=== PATIENT | female | born 1975 ===

== ENCOUNTER → 2020-08-28 13:56 | Outpatient (BNVA) | payer OTHER, SELFPAY | PROVIDERS: Visit Provider Physician Assistant ==

== ENCOUNTER 2020-09-07 07:51 | Outpatient (REF) | payer OTHER, SELFPAY ==
[2020-09-07 08:41] LABS: MANUAL DIFF FLAG NO
[2020-09-07 08:48] LABS: Basophils Percent Auto 0.4 % (0-2); Eosinophils Absolute Auto 0.1 X10*3/uL (0.0-0.4); Eosinophils Percent Auto 2.2 % (0-4); Hematocrit 32.5 % (37-47); Imm Gran Abs Auto 0.01 X10*3/uL (0.00-0.03); Imm Gran Pct Auto 0.2 % (0.0-0.4); Lymphocytes Absolute Auto 1.5 X10*3/uL (1.2-4.9); Lymphocytes Percent Auto 32.7 % (20-40); Mean Corpuscular HGB Conc 30.8 g/dl (31.0-35.0); Mean Corpuscular Hemoglobin 23.5 pg (27.0-33.0); Mean Corpuscular Volume 76.5 fL (80-98); Mean Platelet Volume 10.5 fL (9.4-12.3); Monocytes Absolute Auto 0.3 X10*3/uL (0.1-1.2); Monocytes Percent Auto 6.2 % (2-11); Neutrophils Absolute Auto 2.6 X10*3/uL (2.0-8.3); Neutrophils Percent Auto 58.3 % (45-73); Platelet Count 336 X10*3/uL (160-400); Red Blood Count 4.25 X10*6/uL (4.20-5.50); Red Cell Distribution Width 17.3 % (11.0-16.0); White Blood Count 4.5 X10*3/uL (4.8-10.8)
[2020-09-07 09:13] LABS: Estimated Average Glucose 111 mg/dL; Hemoglobin A1c % 5.5 %
[2020-09-07 09:22] LABS: Alanine Aminotransferase 15 U/L (0-31); Alkaline Phosphatase 54 U/L (39-117); Anion Gap 10 (12-20); Aspartate Amino Transferase 19 U/L (5-31); Bilirubin Total 0.3 mg/dL (0.0-1.0); Blood Urea Nitrogen 19 mg/dL (9-16); C Reactive Protein 0.12 mg/dL (< or = 0.50); Calcium 7.9 mg/dL (8.4-10.2); Carbon Dioxide 29 mmol/L (22-29); Chloride 106 mmol/L (96-108); Cholesterol 196 mg/dL; Estimated Glomerular Filt Rate > 60; Glucose Random 88 mg/dL (60-115); HDL Cholesterol 59 mg/dL; Iron 27 mcg/dL (30-160); LDL Cholesterol Calculated 129 mg/dl; Percent Iron Saturation 7 % (15-50); Sodium 141 mmol/L (135-145); Total Iron Binding Capacity 369 mcg/dL (228-428); Total Protein 6.7 g/dL (6.5-8.0); Triglycerides 43 mg/dL; Unsaturated Iron Binding 342 ug/dL
[2020-09-07 09:44] LABS: Ferritin 5 ng/mL (10-250); TSH reflex Free T4 1.75 uIU/mL (0.32-4.0); Vitamin D 25-OH Total 40.6 ng/mL (>30)
[2020-09-09 09:45] LABS: Folate 18.9 ng/mL (> or = 4.0); Vitamin B12 366 pg/mL (200-900)
[2020-09-10 03:42] LABS: Zinc 86 mcg/dL (60-130)
[2020-09-10 10:27] LABS: Calcium (PTHI) 8.1 mg/dL (8.6-10.2); PTHI 41 pg/mL (14-64)
[2020-09-11 15:11] LABS: Vitamin A 47 mcg/dL (38-98)
[2020-09-11 15:56] LABS: Vitamin B1 45 nmol/L (8-30)
== END 2020-09-07 07:52 | disposition home or self-care (01) ==
LOC: HO.LAB 07:51
PROVIDERS: PCP Family Medicine; Visit Provider Physician Assistant
DX: E66.9 Obesity, unspecified (principal); Z90.3 Acquired absence of stomach [part of]
CPT/HCPCS: 36415; 80053; 80061; 82306; 82607; 82728; 82746; 83036; 83525; 83540; 83970; 84425; 84443; 84590; 84630; 85025; 86140

== ENCOUNTER → 2020-10-16 08:12 | Outpatient (BNVA) | payer OTHER, SELFPAY | PROVIDERS: Visit Provider Physician Assistant | DX: Z90.3 Acquired absence of stomach [part of] (principal); E66.9 Obesity, unspecified ==

== ENCOUNTER 2022-04-13 08:19 | Emergency (ER) | payer OTHER, SELFPAY ==
[2022-04-13 08:31] VITALS: BP 158/76; PULSE 61; RESP 20; TEMP 36.6; O2SAT 100; BMI 31.3
--- NOTE | 2022-04-13 09:12 | ED.SKABFB ---
HPI - Skin/Abscess/Foreign Bdy General Chief complaint: Skin/Abscess/Foreign Body Stated complaint: Rash Time Seen by Provider: 04/13/22 09:04 Source: patient Mode of arrival: ambulatory History of Present Illness HPI narrative: 47-year-old female with no significant past medical history presenting to the ED complaining of pruritic rash to back and abdomen x1 month. Admits feels like rash is spreading. Was evaluated by PCP initially prescribed topical triamcinolone, and then permethrin without any relief. Denies fever, chills, new exposures/medications, recent travel, known insect/tick bites, SOB MD complaint: rash Onset (ago): month(s) Related Data Home Medications Medication Instructions Recorded Confirmed acetaminophen 325 mg tablet 0 mg PO 08/28/20 08/28/20 bupropion HCl 100 mg tablet,12 hr 100 mg PO BID 08/28/20 08/28/20 sustained-release calcium carbonate 300 mg (750 mg) 2 tab PO QID PRN 08/28/20 08/28/20 chewable tablet famotidine 40 mg tablet (Pepcid) 40 mg PO DAILY 08/28/20 08/28/20 hydroxyzine HCl 25 mg tablet 25 mg PO TID 08/28/20 08/28/20 vilazodone 40 mg tablet mg PO 08/28/20 08/28/20 Previous Rx's Medication Instructions Recorded iron,carbonyl 65 mg-vitamin C 125 1 tab PO DAILY #30 tabs 09/18/20 mg tablet,delayed release (Vitron-C) diphenhydramine HCl 25 mg capsule 25 mg PO TID PRN allergy symptoms 04/13/22 (Benadryl) #14 caps hydrocortisone 1 % topical 1 appl topical BID PRN rash #28.35 04/13/22 ointment (Anti-Itch grams (hydrocortisone)) prednisone 20 mg tablet 40 mg PO DAILY 5 days #10 tabs 04/13/22 Allergies Allergy/AdvReac Type Severity Reaction Status Date / Time No Known Allergies Allergy Unverified 08/28/20 14:06 [No Known Allergies*] Review of Systems Review of Systems: Constitutional: No Weight loss, No Fever, No Chills ENT/Mouth: No Ear Pain, No Nasal Congestion, No Sinus Pain, No Hoarseness, No sore throat, No Rhinorrhea, No Swallowing Difficulty Cardiovascular: No Chest Pain, No SOB Respiratory: No Cough, No Sputum, No Wheezing Gastrointestinal: No Nausea, No Vomiting, No Diarrhea, No Constipation, No Abdominal pain Genitourinary: No Dysuria, No Urinary Frequency, No Hematuria, No Flank Pain Musculoskeletal: No joint pain, No Myalgias, No Joint Swelling Skin: No Skin Lesions, + rash Neuro: No Weakness, No Numbness, No Paresthesias Yes all other systems are reviewed and are negative Constitutional: Constitutional: Reports as per [facility] Past Medical History Attestation statement: The following information was validated with the patient. Surgical History History of sleeve gastrectomy Hx of cholecystectomy Family History Family History Father Stroke Mother Diabetes mellitus Sister Cancer of kidney Brother No problems noted. Sister No problems noted. Social History Social History Alcohol intake: never Advance Directives: No Advance Directives Information Provided: No Physical Exam Vital Signs: Vital Signs: Last Vital Signs Temp 97.8 F 04/13/22 08:31 Pulse 61 04/13/22 08:31 Resp 20 04/13/22 08:31 BP 158/76 H 04/13/22 08:31 Pulse Ox 100 04/13/22 08:31 O2 Del Method 04/13/22 08:31 BMI result Body Mass Index 31.3 Const: General: cooperative, healthy appearing and no acute distress Orientation/consciousness: patient oriented x3 Limitations: no limitations HEENT: Other: No mucous membrane involvement Head: Yes normal to inspection and Yes atraumatic Ears: hearing grossly normal bilaterally General nose exam: Normal external nose present Face and sinus: Yes normal facial exam Mouth: Normal oral and palatal mucosa present Throat: Yes posterior oropharynx normal, Yes uvula midline, No peritonsillar mass, No uvula laterally displaced and No uvular edema Eyes: General: appearance normal, both eyes and all related structures EOM: EOMs intact bilaterally Neck: Neck: Yes normal visual inspection and Yes no meningeal signs Resp: Effort & Inspection: normal respiratory effort and no respiratory distress Cardio: Rate: regular rate Heart sounds: S1 normal heart sound present and S2 normal heart sound present GI: Inspection: Yes normal to inspection Palpation (GI): Soft to palpation, nontender, no guarding and not rigid Skin: Other: + papular rash noted to back and abdomen with scant area to right axilla. No erythema/warmth, no pustules, no excoriations. No palm or sole involvement Wounds: no wounds Neuro: General: patient oriented x3, tone normal and no meningeal signs Gait exam (Neuro): Normal gait present Extrem: General: Yes normal to inspection Medical Decision Making Medical Decision Making MDM Narrative: 47-year-old female with no significant past medical history presenting to the ED complaining of pruritic rash to back and abdomen x1 month. On exam vital signs stable, NAD, nontoxic appearing, physical exam as noted above. Papular rash without mucous membrane or palm/sole involvement. Concern for contact dermatitis. Low suspicion for TENS/SJS, or STI Differential Diagnosis Differential Diagnoses: The differential diagnosis associated with the presentation includes as above External Record Review External record reviewed: Office record Prescription Management I considered prescription management with: Antibiotic (however not needed at this time) Discharge Plan Discharge Clinical Impression: Rash Patient Disposition: Home, Self-Care Instructions: Acute Rash (ED) Additional Instructions: Continue taking Zyrtec daily. In addition take Benadryl for itching/rash, Benadryl will make you drowsy. Prednisone as a steroid, take as prescribed. Topical hydrocortisone is a topical steroid, apply to rash only, avoid appliance to face, hands, genital region as can discolored skin Please follow-up with a chief human resources officer. If symptoms persist or worsen, you have fever, nausea/vomiting, spreading rash return to the ED Prescriptions: New diphenhydramine HCl [Benadryl] 25 mg capsule 25 mg PO TID PRN (Reason: allergy symptoms) Qty: 14 0RF hydrocortisone [Anti-Itch (HC)] 1 % ointment 1 appl topical BID PRN (Reason: rash) Qty: 28.35 0RF prednisone 20 mg tablet 40 mg PO DAILY 5 Days Qty: 10 0RF No Action Vitron-C 65 mg iron- 125 mg tablet,delayed release (DR/EC) 1 tab PO DAILY Qty: 30 11RF Viibryd 40 mg tablet PO calcium carbonate 300 mg (750 mg) tablet,chewable 2 tab PO QID PRN acetaminophen 325 mg tablet 0 mg PO bupropion HCl 100 mg tablet sustained-release 12 hr 100 mg PO BID hydroxyzine HCl 25 mg tablet 25 mg PO TID famotidine [Pepcid] 40 mg tablet 40 mg PO DAILY Referrals: Eve Navarro PA [Physician Line Cleaner] - Jarett Elder MD [Physician] - Schuyler Fernandes MD [Physician] - Stevenson Aguilar FNP-ASHISH [Nurse Practitioner] - Cassie Cheng PA-C [Physician Line Cleaner] -
== END 2022-04-13 09:33 | disposition home or self-care (01) ==
PROVIDERS: Emergency Provider Emergency Medicine
DX: R21 Rash and other nonspecific skin eruption (principal)
CPT/HCPCS: 99283

== ENCOUNTER → 2023-02-18 13:24 | Outpatient (BNVA) | payer OTHER, SELFPAY | PROVIDERS: Visit Provider Physician Assistant Surgical ==

== ENCOUNTER 2023-02-27 08:27 | Outpatient (REF) | payer OTHER, SELFPAY ==
[2023-02-27 08:50] LABS: MANUAL DIFF FLAG NO
[2023-02-27 09:25] LABS: Basophils Percent Auto 0.6 % (0-2); Eosinophils Absolute Auto 0.1 X10*3/uL (0.0-0.4); Hematocrit 36.5 % (37.0-47.0); Hemoglobin 11.3 g/dl (12.0-16.0); Imm Gran Abs Auto 0.02 X10*3/uL (0.00-0.03); Imm Gran Pct Auto 0.4 % (0.0-0.4); Lymphocytes Absolute Auto 1.5 X10*3/uL (1.2-4.9); Lymphocytes Percent Auto 30.2 % (20-40); Mean Corpuscular Hemoglobin 23.7 pg (27.0-33.0); Mean Corpuscular Volume 76.7 fL (80.0-98.0); Monocytes Absolute Auto 0.4 X10*3/uL (0.1-1.2); Monocytes Percent Auto 7.7 % (2-11); Neutrophils Percent Auto 60.1 % (45-73); Platelet Count 341 X10*3/uL (160-400); Red Blood Count 4.76 X10*6/uL (4.20-5.50); Red Cell Distribution Width 18.9 % (11.0-16.0); White Blood Count 5.1 X10*3/uL (4.8-10.8)
[2023-02-27 09:30] LABS: Estimated Average Glucose 120 mg/dL; Hemoglobin A1C 118.6537 umol/L; Hemoglobin A1c % 5.8 % (<6.0)
[2023-02-27 09:51] LABS: Alanine Aminotransferase 11 U/L (0-31); Alkaline Phosphatase 60 U/L (39-117); Anion Gap 12 (12-20); Aspartate Amino Transferase 19 U/L (5-31); Bilirubin Total 0.2 mg/dL (0.0-1.0); Blood Urea Nitrogen 13 mg/dL (9-16); C Reactive Protein 0.33 mg/dL (< or = 0.50); Carbon Dioxide 31 mmol/L (22-29); Chloride 101 mmol/L (96-108); Cholesterol 235 mg/dL (<200); Estimated Glomerular Filt Rate > 60; Glucose Random 87 mg/dL (60-115); HDL Cholesterol 56 mg/dL (>40); Iron 26 mcg/dL (30-160); LDL Cholesterol Calculated 162 mg/dL (<100); Percent Iron Saturation 8 % (15-50); Sodium 141 mmol/L (135-145); Total Iron Binding Capacity 336 mcg/dL (228-428); Total Protein 7.5 g/dL (6.5-8.0); Triglycerides 85 mg/dL (<150); Unsaturated Iron Binding 310 ug/dL
[2023-02-27 10:09] LABS: Ferritin 4 ng/mL (10-250); Insulin 6 uU/mL (2-29); TSH reflex Free T4 1.74 uIU/mL (0.32-4.0); Vitamin D 25-OH Total 43.4 ng/mL (>30)
[2023-02-27 10:21] LABS: Folate 14.4 ng/mL (> or = 4.0); Vitamin B12 649 pg/mL (200-900)
[2023-03-02 16:29] LABS: Calcium (PTHI) 7.8 mg/dL (8.6-10.2); PTHI 38 pg/mL (16-77)
[2023-03-03 00:59] LABS: Zinc 79 mcg/dL (60-130)
[2023-03-03 11:18] LABS: Vitamin A 43 mcg/dL (38-98)
[2023-03-06 08:44] LABS: Vitamin B1 25 nmol/L (8-30)
== END 2023-02-27 08:28 | disposition home or self-care (01) ==
LOC: HO.LAB 08:27
PROVIDERS: Visit Provider Physician Assistant Surgical
DX: K91.2 Postsurgical malabsorption, not elsewhere classified (principal); Z90.3 Acquired absence of stomach [part of]
CPT/HCPCS: 36415; 80053; 80061; 82306; 82607; 82728; 82746; 83036; 83525; 83540; 83970; 84425; 84443; 84590; 84630; 85025; 86140

== ENCOUNTER 2023-04-08 13:41 | Outpatient (AMB) | payer OTHER, SELFPAY ==
--- NOTE | 2023-04-08 13:31 | MHC.OFFVISWM ---
Intake VS Expanded 04/08/23 13:38 Height 5 ft 3 in Weight 200 lb BMI 35.4 Intake Visit Reasons: (VIDEO) PO LSG 10/06/2018 Allergies No Known Allergies [No Known Allergies*] Allergy (Unverified 08/28/20 14:06) Medication List - Last Reconciled 04/08/23 by ANGELA Mcclain acetaminophen 0 mg PO bupropion HCl 100 mg PO BID calcium carbonate 2 tabs PO QID PRN diphenhydramine HCl (Benadryl) 25 mg PO TID PRN famotidine (Pepcid) 40 mg PO DAILY hydrocortisone 1% (Anti-Itch (hydrocortisone)) 1 appl topical BID PRN hydroxyzine HCl 25 mg PO TID iron,carbonyl-vitamin C 65 mg iron- 125 mg (Vitron-C) 1 tab PO BEDTIME vilazodone mg PO HPI HPI Comments History of Present Illness Details This?is a?48?yo female who is s/p LSG 10/06/2018. Presents for 4.5 year post op visit. Weight at last visit on 08/28/2020 was 181 pounds with a BMI of 32.1, weight today is 200 pounds (pt thinks), representing a 19 pound weight gain with a BMI today of 35.4.? Pt was unaware of recent bloodwork results despite our office leaving a message. Not doing anything for exercise. No gym membership. Willing to do home workouts. Recently started a BP med, unsure of the name. REPLACED BY [facility] Surgical History History of sleeve gastrectomy Hx of cholecystectomy Family History Father Stroke Mother Diabetes mellitus Sister Cancer of kidney Brother No problems noted. Sister No problems noted. Social History Alcohol intake: never Assessment & Plan Assessment & Plan (1) Obesity: Code(s): E66.9 - Obesity, unspecified (2) History of sleeve gastrectomy: Comment: 2018 Code(s): Z90.3 - Acquired absence of stomach [part of] (3) Anemia: Code(s): D64.9 - Anemia, unspecified Plan Pt needs to call her PCP and let them know about her recent K/Ca results, as it's possible her new BP med is affecting these (she is unsure of name of med today). Also advised her to let them know her chol levels are now above normal. New meal plan, goal 80g protein/day: 2 shakes, each with 2 scoops Orgain in 8 oz unsweetened almond milk 1 ZP bar 1 meal with 6 forks protein, 6 forks salad/veg Sent pt home exercise video handout. RTC 6 weeks for accountability. Texted meal plan to pt and encouraged her to reach out between appts with any questions. Patient is obese and is not considered stable at this time. I spent a total of 30 minutes reviewing/updating records, examining the patient and counseling the patient on weight management as detailed above. Telehealth Telehealth Location of provider rendering services: practice address Location of patient: other Patient Identification confirmed using: Name, : Yes Telehealth method: video Patient verbally consented to treatment: Yes Patient verbally consented to billing insurance company: Yes Patient informed of any privacy concerns related to visit: Yes Coding Level of Care Code Tele Est Pt Level 4 (95588) Diagnoses Obesity E66.9 History of sleeve gastrectomy Z90.3 Anemia D64.9
[2023-04-08 13:38] VITALS: BMI 35.4
== END 2023-04-08 13:51 | disposition home or self-care (01) ==
LOC: HO.HBS 13:41
PROVIDERS: Visit Provider Physician Assistant Surgical
DX: E66.9 Obesity, unspecified (principal); Z90.3 Acquired absence of stomach [part of]; D64.9 Anemia, unspecified
CPT/HCPCS: 99214

== ENCOUNTER → 2023-04-08 13:41 | Outpatient (BNVA) | payer OTHER, SELFPAY | PROVIDERS: Visit Provider Physician Assistant Surgical ==

== ENCOUNTER → 2024-04-25 08:30 | Outpatient (BNV) | payer OTHER, SELFPAY | PROVIDERS: Emergency Provider Emergency Medicine; Visit Provider Radiology Diagnostic Radiology | DX: M25.641 Stiffness of right hand, not elsewhere classified (principal) | CPT/HCPCS: 73130 ==

== ENCOUNTER 2024-10-17 15:21 | Outpatient (AMB) | payer OTHER, SELFPAY ==
--- NOTE | 2024-10-17 15:24 | MHC.OFFVISWM ---
VS Expanded 10/17/24 15:26 10/17/24 15:28 BP 139/68 Blood Pressure Location Lt brachial Lt brachial Blood Pressure Position Sitting Sitting Pulse 67 Temp 97.0 F Pulse Oximetry 97 Height 5 ft 3 in 5 ft 3 in Weight 211 lb BMI 37.4 Body Fat % 42.4 Body Fat Mass 89.6 Fat Free Mass 121.4 Visceral Fat Rating 12.0 Body Water % 41.1 Body Water Mass 86.6 Muscle Mass/Score 115.4 Basal Metabolic Rate/Score 1,686 Intake Visit Reasons: (OV) PO LSG 10/06/2018 Allergies No Known Allergies (No Known Allergies*) Allergy (Verified 10/17/24 15:29) Medication List - Last Reconciled 10/17/24 by ANGELA Mcclain acetaminophen 0 mg PO bupropion HCl SR 200 mg PO QAM calcium carbonate 2 tabs PO QID PRN diphenhydramine HCl (Benadryl) 25 mg PO TID PRN famotidine (Pepcid) 40 mg PO DAILY hydrochlorothiazide 25 mg PO DAILY hydrocortisone 1% (Anti-Itch (hydrocortisone)) 1 appl topical BID PRN hydroxyzine HCl 50 mg PO TID iron,carbonyl-vitamin C 65 mg iron- 125 mg (Vitron-C) 1 tab PO BEDTIME vilazodone mg PO HPI Comments Details: This?is a 49?yo F who is s/p LSG 10/06/2018. Presents for 6yr post op visit. Weight gain of 11lbs since last OV Mar 2023. No complaints of nausea, emesis, abdominal pain or reflux, or constipation. Present meal plan includes: 7-9am Premier Protein shake 2 scoops in 8oz UAM 12pm lunch- 6 forks protein, 6 forks salad/veg (discussed substituting half of salad/veg forks for healthy carb like rice or potatoes) 2-4pm Celebrate protein bar 6-8pm bar -given at last visit [facility] Surgical History History of sleeve gastrectomy Hx of cholecystectomy Family History Father Stroke Mother Diabetes mellitus Sister Cancer of kidney Brother No problems noted. Sister No problems noted. Social History Alcohol intake: never Physical Exam Vital Signs: Last Vital Signs Temp 97.0 F 10/17/24 15:28 Pulse 67 10/17/24 15:28 BP 139/68 10/17/24 15:28 Pulse Ox 97 10/17/24 15:28 BMI result Body Mass Index 37.4 Assessment & Plan Assessment & Plan (1) History of sleeve gastrectomy: Comment: 2019 Code(s): Z90.3 - Acquired absence of stomach [part of] Category: Surgical (2) Obesity: Code(s): E66.9 - Obesity, unspecified Category: Medical Plan Pt is interested in starting GLP1. Reviewed contraindications, discussed dosing. Discussed need for adequate protein intake while on GLP1s as well as frequent communication with our office. Pt will check in with me weekly and is aware that subsequent Rx will be dependent on frequent communication. Will recheck labs, was low in Ca/K last draw 1.5 years ago. RTC 3 mo. Orders: Orders Ferritin Today Z90.3 - Acquired absence of stomach [part of] C Reactive Protein Today Z90.3 - Acquired absence of stomach [part of] Vitamin A Today Z90.3 - Acquired absence of stomach [part of] Comprehensive Met. Panel Today Z90.3 - Acquired absence of stomach [part of] Complete Blood Count Auto Diff Today Z90.3 - Acquired absence of stomach [part of] Lipid Panel Today Z90.3 - Acquired absence of stomach [part of] IRON PROFILE Today Z90.3 - Acquired absence of stomach [part of] Insulin Today Z90.3 - Acquired absence of stomach [part of] Vitamin D 25-OH Total Today Z90.3 - Acquired absence of stomach [part of] TSH reflex Free T4 Today Z90.3 - Acquired absence of stomach [part of] Vitamin B1 Today Z90.3 - Acquired absence of stomach [part of] Zinc Today Z90.3 - Acquired absence of stomach [part of] Vitamin B12 and Folate Today Z90.3 - Acquired absence of stomach [part of] Hemoglobin A1c Today Z90.3 - Acquired absence of stomach [part of] Medications: New Zepbound (tirzepatide (weight loss)) for 4 weeks 2.5 mg (0.5 mL) subcut QWEEK 2 mL 0RF NS
[2024-10-17 15:28] VITALS: BP 139/68; PULSE 67; TEMP 36.1; O2SAT 97; BMI 37.4
--- OUTSIDE RECORDS SUMMARY | 2024-10-17 16:09 | XMS_ITS | Clinical Summary ---
Author Organization [facility] Address [address] [place] [address] Care Team Providers Care Auto Tester Name Role Phone Luca Miller MD Primary Care Provider [phone] Allergies No known active allergies Medications acetaminophen (TYLENOL) 325 mg tablet Take 2 Tabs by mouth every 6 hours as needed for Pain for up to 30 doses. 03/21/2018 Active cetirizine (ZyrTEC) 10 mg tablet 1/2 TABLET DAILY 04/01/2006 Active esomeprazole (NexIUM) [address] capsule 1 CAPSULE DAILY 10/13/2006 Active fexofenadine (Dena Allergy) 180 mg tablet 1 TABLET DAILY 10/13/2006 Active metFORMIN (GLUCOPHAGE) 500 mg tablet 1 tab daily 10/13/2006 Act yamileth norethindrone ac-eth estradio (LOESTRIN) 1.5-30 mg-mcg per tablet None Entered Active ferrous sulfate 325 mg (65 mg elemental iron) tablet 1 TABLET DAILY Active Active Problems Problem Noted Date Diagnosed Date Headache 06/29/2006 Esophageal reflux 02/04/2006 Controlled diabetes mellitus type II without complication ([facility] V24, [facility] V28) 08/04/2005 Morbid obesity ([facility] V24, [facility] V28) 2005 Surgical History Surgery Date Site/Laterality Comments CHOLECYSTECTOMY 03/07/2018 PROCEDURE: [place] CHOLECYSTECTOMY Medical History Medical History Date Comments Type II or unspecified type diabetes mellitus without mention of complication, not stated as uncontrolled DX:Type II or unspecified ty pe diabetes mellitus without mention of complication, not stated as uncontrolled Morbid obesity ([facility] V24, [facility] V28) DX:Morbid obesity ([facility]) Esophageal reflux 02/04/2006 DX:Esophageal reflux Family History Medical History Relation Name Comments Other: dm Aunt 1 Other: heart condition Mother Pt did not know details Allergies Sister 1 Relation Name Status Comments Aunt 1 Aunt 2 Mother Sister 1 Sister 2 Social History Tobacco Use Types Packs/Day Years Used Date Smoking Tobacco: Never Smokeless Tobacco: Never Alcohol Use Standard Drinks/Week Comments Not Asked 0 (1 standard drink = 0.6 oz pur e alcohol) Comments Unknown Sex and Gender Information Value Date Recorded Sex Assigned at Not on file Legal Sex Female 4:55 AM EST Gender Identity Not on file Sexual Orientation Not on file Obstetrics History Plan of Treatment Upcoming Encounters Date Type Department Care Team (Late st Contact Info) Description 10/18/2024 8:45 AM EDT Appointment [facility] [address] [address] Health Maintenance Due Date Last Done Comments Diabetes: Annual Foot Exam 1983 Diabetes: Annual Retina Eye Exam 1983 DTaP,Tdap,and Td Vaccines (1 - Tdap) 1992 Hepatitis B Vaccines (1 of 3 - 19+ 3-dose series) 1992 Pneumococcal Vaccine: 50+ Years (1 of 2 - PCV) 1992 Pneumococcal Vaccine: Pediatrics (0 to 5 Years) and At-Risk Patients (6 to 64 Years) (1 of 2 - PCV) 1992 Cervical Cancer Screening: P ap Smear 1994 Diabetes: Annual GFR (Glomerular Filtration Rate) 01/09/2007 01/09/2006 Cholesterol Screening (Lipid Panel) 03/22/2022 08/04/2005 Colorectal Cancer Screening: Colonoscopy 03/22/2022 Depression Screening 03/22/2022 HIV Screening 03/22/2022 Hepatitis C Screening 03/22/2022 Social Influencers of Health Screening 03/22/2022 Diabetes: Annual Urine Albumin-Creatinine Ratio (uACR) 04/03/2022 01/09/2006 Diabetes: Blood Sugar Contro l Test (HGBA1C) 04/03/2022 01/09/2006 Zoster Vaccines (1 of 2) 2023 COVID-19 Vaccine ( - 2023-2 5 season) 2023 Breast Cancer Screening 10/14/2024 10/15/19, 10/23/2020, 11/04/2017 Influenza Vaccine (Season Ended) 2024 HIB Vaccines Aged Out No longer eligi ble based on patient's age to complete this topic HPV Vaccines Aged Out No longer eligi ble based on patient's age to complete this topic Hepatitis A Vaccines Aged Out No long er eligible based on patient's age to complete this topic IPV Vaccines Aged Out No longer eligi ble based on patient's age to complete this topic MMR Vaccines Aged Out No longer eligi ble based on patient's age to complete this topic Meningococcal ACWY Vaccine Aged Out N o longer eligible based on patient's age to complete this topic Meningococcal B Vaccine Aged Out No l onger eligible based on patient's age to complete this topic RSV Immunization Patients Under 20 months Aged Out No longer eligible b ased on patient's age to complete this topic Varicella Vaccines Aged Out No longer eligible based on patient's age to complete this topic Procedures Procedure Name Priority Date/Time Associated Diagnosis Comments [facility] SCREENING DIGITAL Routine 10/14/2022 3:48 PM EDT Encounter for screening mammogram for malignant neoplasm of breast URINE ALBUMIN CREATININE RATIO Routine 01/09/2006 ANNUAL BMP BLOOD TEST Routine 01/09/2006 HEMOGLOBIN A1C Routine 01/09/2006 LIPID PANEL Routine 08/04/2005 from Last 3 Months or Most Recently Relevant to Health Maintenance Results * [facility] SCREENING DIGITAL (10/14/2022 3:48 PM EDT) Anatomical Region Laterality Modality Mammography 10/14/2022 9:35 AM EDT Narrative 10/14/2022 3:48 PM EDT [facility] Diagnostic Imaging Department [address] [place] [address] [id number] Patient: TEAGAN RAO D.O.B./Age/Sex: 1975 - 47 - F Unit#: [id number] Location/Status: SPDIMAM/REG CLI Mnemonic/Ordering Site: [facility] Ordering Physician: REY ARNOLD FRUIT OR NUT GROWER Nayla Screening Digital - 10/14/22 - 50 Report Status:Signed EXAM: [facility] Screening Digital EXAM DATE AND TIME: 10/14/2022 9:51 AM HISTORY: Screening. COMPARISON: 10/23/20, 11/04/17, 08/17/16 TECHNIQUE: CC and MLO views of both breasts were obtained using full field digital mammography. Bilateral digital breast tomosynthesis was performed in the MLO projection. Computer aided detection with Blurr 7.2-H and Conecta 2 3D 3.1 was employed. TISSUE DENSITY: b. There are scattered areas of fibroglandular density. FINDINGS: A 2.5 cm asymmetry is seen in the upper left breast, middle depth, MLO views only, possibly summation artifact. MLO spot compression tomosynthesis views and full lateral tomosynthesis views are recommended for further assessment. No grouped microcalcifications or areas of architectural distortion are seen. The skin and vascularity are unremarkable. IMPRESSION: 1. Left breast asymmetry, for which additional views are recommended. The patient will be called back. 2. Stable mammographic appearance of the right breast. No evidence of malignancy is seen. BI-RADS: Category 0: Incomplete - Need Additional Imaging Evaluation RECOMMENDATION(S): 1: Special mammographic view(s) needed LEFT [id number], [id number], [id number] Dictating Physician: RYLIE BOLANOS MD Electronically Signed by: RYLIE BOLANOS MD Dic Date/Time: 10/14/22 1546 Sign date/Time: 10/14/22 154 Procedure Note Rylie Bolanos MD - 05/25/2023 [facility] Diagnostic Imaging Department [address] [place] [id number] Patient: TEAGAN RAO /Age/Sex: 1975 - 47 - F Unit#: [id number] Location/Status: SPDIMAM/REG CLI Mnemonic/Ordering Site: [facility] Ordering Physician: REY ARNOLD NP [facility] Screening Digital - 10/14/22 - 0950 Report Status:Signed EXAM: [facility] Screening Digital EXAM DATE AND TIME: 10/14/2022 9:51 AM HISTORY: Screening. COMPARISON: 10/23/20, 11/04/17, 08/17/16 TECHNIQUE: CC and MLO views of both breasts were obtained using fullfield digital mammography. Bilateral digital breast tomosynthesis was performedin the MLO projection. Computer aided detection with Blurr 7.2-H andConecta 2 3D 3.1 was employed. TISSUE DENSITY: b. There are scattered areas of fibroglandular density. FINDINGS: A 2.5 cm asymmetry is seen in the upper left breast, middle depth, MLOviews only, possibly summation artifact. MLO spot compression tomosynthesisviews and full lateral tomosynthesis views are recommended for further assessment. No grouped microcalcifications or areas of architectural distortion areseen. The skin and vascularity are unremarkable. IMPRESSION: 1. Left breast asymmetry, for which additional views are recommended.The patient will be called back. 2. Stable mammographic appearance of the right breast. No evidence of malignancy is seen. BI-RADS: Category 0: Incomplete - Need Additional Imaging Evaluation RECOMMENDATION(S): 1: Special mammographic view(s) needed LEFT [id number], [id number], [id number] Dictating Physician: RYLIE BOLANOS MD Electronically Signed by: RYLIE BOLANOS MD Dic Date/Time: 10/14/221545 Sign date/Time: 10/14/221547 Result [facility] Rey Arnold FRUIT OR NUT GROWER IMG BI PROCEDURES Magdalena l Result * Urine Albumin Creatinine Ratio (01/09/2006) Pathologist [facility] Urine Albumin Creatinine Ratio Abstracted Result [facility] Provider HEALTH MAINTENANCE Final Result * Annual BMP Blood Test (01/09/2006) Pathologist [facility] Annual BMP Blood Test Abstracted Result [facility] Provider HEALTH MAINTENANCE Final Result * Hemoglobin A1c (01/09/2006) [facility] Hemoglobin A1C 5.9 4.0 - 6.0 % Blood Venous blood specimen / Unknown Result [facility] Provider LAB BLOOD ORDERABLES Magdalena l Result * (ABNORMAL) Lipid panel (08/04/2005) [facility] LDL/HDL Ratio 5(A) 0 - 4 Triglycerides 137 0 - 150 mg/dL Cholesterol 203(A) 0 - 200 mg/dL HDL 44 >=40 mg/dL LDL Cholesterol 132(A) 0 - 100 mg/dL Blood Venous blood specimen / Unknown Result [facility] Historical Provider LAB BLOOD ORDERABLES Magdalena l Result from Last 3 Months or Most Recently Relevant to Health Maintenance Insurance [facility] Care Teams Auto Tester Relationship Specialty Start Date End Date Luca Miller MD [address] [place] [address] PCP - General 11/26/05
== END 2024-10-17 16:08 | disposition home or self-care (01) ==
LOC: HO.HBS 15:22
PROVIDERS: Visit Provider Physician Assistant Surgical
DX: E66.9 Obesity, unspecified (principal); Z68.37 Body mass index [BMI] 37.0-37.9, adult; Z90.3 Acquired absence of stomach [part of]; Z98.84 Bariatric surgery status
CPT/HCPCS: 99214; G2211

== ENCOUNTER 2024-11-15 07:52 | Outpatient (REF) | payer OTHER, SELFPAY ==
[2024-11-15 08:15] LABS: MANUAL DIFF FLAG NO
[2024-11-15 08:51] LABS: Hematocrit 39.7 % (37.0-47.0); Hemoglobin 13.5 g/dl (12.0-16.0); Imm Gran Abs Auto 0.01 X10*3/uL (0.00-0.03); Imm Gran Pct Auto 0.2 % (0.0-0.4); Lymphocytes Absolute Auto 1.6 X10*3/uL (1.2-4.9); Mean Corpuscular HGB Conc 34.0 g/dl (31.0-35.0); Mean Corpuscular Hemoglobin 28.2 pg (27.0-33.0); Mean Corpuscular Volume 83.1 fL (80.0-98.0); NRBC Abs Auto 0.000 X10*3/uL (0.0-0.012); NRBC Pct Auto 0.0 /100WBC (0.0-0.2); Platelet Count 324 X10*3/uL (160-400); Red Blood Count 4.78 X10*6/uL (4.20-5.50); White Blood Count 5.1 X10*3/uL (4.8-10.8)
[2024-11-15 08:56] LABS: Hemoglobin A1C 163.0676 umol/L; Total Hemoglobin (HGBA1C) 3569.3533 umol/L
[2024-11-15 09:23] LABS: Alanine Aminotransferase 25 U/L (0-31); Albumin Level 4.3 g/dL (3.5-5.0); Alkaline Phosphatase 57 U/L (39-117); Anion Gap 12 (12-20); Aspartate Amino Transferase 28 U/L (5-31); Blood Urea Nitrogen 20 mg/dL (9-16); Calcium 8.9 mg/dL (8.4-10.2); Carbon Dioxide 30 mmol/L (22-29); Chloride 101 mmol/L (96-108); Cholesterol 264 mg/dL (<200); Estimated Glomerular Filt Rate > 60; HDL Cholesterol 55 mg/dL (>40); Iron 75 mcg/dL (30-160); Percent Iron Saturation 26 % (15-50); Potassium 3.1 mmol/L (3.3-5.1); Sodium 140 mmol/L (135-145); Total Iron Binding Capacity 292 mcg/dL (228-428); Total Protein 7.4 g/dL (6.5-8.0); Triglycerides 102 mg/dL (<150); Unsaturated Iron Binding 217 ug/dL
[2024-11-15 09:41] LABS: Ferritin 18 ng/mL (10-250)
[2024-11-15 09:53] LABS: Folate 15.5 ng/mL (> or = 4.0); Vitamin B12 688 pg/mL (200-900)
[2024-11-15 10:42] LABS: Free T4 (Free Thyroxine) 0.81 ng/dL (0.71-1.85)
== END 2024-11-15 07:53 | disposition home or self-care (01) ==
LOC: HO.LAB 07:52
PROVIDERS: Visit Provider Physician Assistant Surgical
DX: Z90.3 Acquired absence of stomach [part of] (principal)
CPT/HCPCS: 36415; 80053; 80061; 82306; 82607; 82728; 82746; 83036; 83525; 83540; 84425; 84439; 84443; 84590; 84630; 85025; 86140

== ENCOUNTER 2025-01-24 13:24 | Outpatient (AMB) | payer OTHER, SELFPAY ==
--- NOTE | 2025-01-24 13:31 | MHC.OFFVISWM ---
VS Expanded 01/24/25 13:51 BP 136/64 Blood Pressure Location Rt brachial Blood Pressure Position Sitting Pulse 75 Pulse Source Pulse Oximeter Temp 97.9 F Temperature Source Temporal Artery Scan Pulse Oximetry 97 Oxygen Delivery Method Room Air Height 5 ft 3 in Weight 200 lb BMI 35.4 Body Fat % 42.7 Body Fat Mass 85.4 Fat Free Mass 114.6 Visceral Fat Rating 11.0 Body Water % 40.8 Body Water Mass 81.6 Muscle Mass/Score 109.0 Basal Metabolic Rate/Score 1,593 Intake Visit Reasons: (OV) PO LSG 10/06/2018 Allergies No Known Allergies (No Known Allergies*) Allergy (Verified 01/24/25 13:35) Medication List - Last Reconciled 01/24/25 by ANGELA Mcclain bupropion HCl SR 200 mg PO QAM famotidine (Pepcid) 40 mg PO DAILY hydrochlorothiazide 25 mg PO DAILY hydroxyzine HCl 50 mg PO TID potassium chloride ER (K-Tab) 20 mEq PO BID semaglutide (weight loss) (Wegovy) 1 mg (0.5 mL) subcut QWEEK vilazodone mg PO HPI Comments Details: This?is a 49?yo F who is s/p LSG 10/06/2018. Presents for 6yr 4mo post op visit. Weight loss of 11lbs since last OV October 2024. No complaints of nausea, emesis, abdominal pain or constipation. Takes Pepcid for reflux. On Wegovy 1mg. Present meal plan includes: 7-9am Premier Protein shake 2 scoops in 8oz UAM 12pm lunch- 6 forks protein, 6 forks salad/veg (discussed substituting half of salad/veg forks for healthy carb like rice or potatoes) 2-4pm Celebrate protein bar 6-8pm bar -given at last visit, pt has mostly following, sometimes doesn't finish second bar PFSH Surgical History History of sleeve gastrectomy Hx of cholecystectomy Family History Father Stroke Mother Diabetes mellitus Sister Cancer of kidney Brother No problems noted. Sister No problems noted. Social History (Updated 01/24/25 @ 13:37 by MONSERRAT Simons Alcohol intake: never Patient Tobacco Use Status: Never used Tobacco Assessment & Plan Assessment & Plan (1) Obesity: Code(s): E66.9 - Obesity, unspecified Category: Medical (2) History of sleeve gastrectomy: Comment: 2019 Code(s): Z90.3 - Acquired absence of stomach [part of] Category: Medical Plan Labs reviewed- pt is following up with PCP regarding TSH and K. Wegovy refilled at 1mg for now. Pt is experiencing fatigue, will determine if dose should be increased after this month. Continue above meal plan. RTC 6mo, encouraged pt to text me with any questions between appts. Medications: Refilled semaglutide (weight loss) (Wegovy) administer weeks 9 through 12 of therapy 1 mg (0.5 mL) subcut QWEEK 2 mL 0RF
[2025-01-24 13:51] VITALS: BP 136/64; PULSE 75; TEMP 36.6; O2SAT 97; BMI 35.4
== END 2025-01-24 14:03 | disposition home or self-care (01) ==
LOC: HO.HBS 13:25
PROVIDERS: Visit Provider Physician Assistant Surgical
DX: E66.9 Obesity, unspecified (principal); Z68.35 Body mass index [BMI] 35.0-35.9, adult; Z90.3 Acquired absence of stomach [part of]; Z98.84 Bariatric surgery status
CPT/HCPCS: 99214; G2211